=== PATIENT | female | born 1960 | race Caucasian/White ===

== ENCOUNTER 2020-02-28 08:00 | Emergency (ER) | payer SELFPAY ==
[2020-02-28 09:55] VITALS: BP 112/75
--- NOTE | 2020-02-28 10:24 | RADIOLOGY REPORT (SQ) ---
EXAM DESCRIPTION: SHOULDER RIGHT 2 OR MORE VIEWS IMAGES COMPLETED DATE/TIME: 02/28/2020 10:05 am REASON FOR STUDY: fall, R shoulder pain limited ROM COMPARISON: None. NUMBER OF VIEWS: Three views. TECHNIQUE: Internal rotation, external rotation, and Y view images acquired of the right shoulder. LIMITATIONS: None. FINDINGS: MINERALIZATION: Normal. BONES: Nondisplaced fracture of the surgical neck of the humerus. JOINTS: No dislocation. VISUALIZED LUNGS AND RIBS: No pneumothorax. No rib fracture. SOFT TISSUES: No radiopaque foreign body. OTHER: No other significant finding. IMPRESSION: Fracture of the surgical neck. TECHNICAL DOCUMENTATION: JOB ID: [id number] 2010 [employer]- All Rights Reserved Reading location - IP/workstation name: [email or web address]
--- NOTE | 2020-02-28 11:12 | ER Document Report ---
ED Extremity Problem, Upper - General Chief Complaint: Shoulder Pain Stated Complaint: RIGHT SHOULDER PAIN Time Seen by Provider: 02/28/20 08:25 Mode of Arrival: Ambulatory Information source: Patient Notes: 5-year-old female patient presents the emergency department with complaints of right shoulder injury. Patient reports 10 days ago she fell from a standing position striking her left shoulder onto a wall. She denies seeking any medical treatment prior to today. She denies any history of previous trauma to this area. - Related Data Allergies/Adverse Reactions: No Known Allergies Allergy (Unverified 06/29/12 23:06) Past Medical History - General Information source: Patient - Social History Smoking Status: Current Every Day Smoker - Since age 10 Frequency of alcohol use: None Drug Abuse: None Family History: None Pulmonary Medical History: Reports: Hx Asthma Skin Medical History: Reports Hx Psoriasis Past Surgical History: Reports: Hx Gynecologic Surgery - BTL - Immunizations Hx Diphtheria, Pertussis, Tetanus Vaccination: No Review of Systems - Review of Systems Constitutional: No symptoms reported EENT: No symptoms reported Cardiovascular: No symptoms reported Respiratory: No symptoms reported Gastrointestinal: No symptoms reported Genitourinary: No symptoms reported Female Genitourinary: No symptoms reported Musculoskeletal: See HPI Skin: No symptoms reported Hematologic/Lymphatic: No symptoms reported Neurological/Psychological: No symptoms reported Physical Exam - Vital signs Vitals: Temp Pulse Resp BP Pulse Ox 98.9 F 97 16 133/80 H 86 L 02/28/20 08:06 02/28/20 08:06 02/28/20 08:06 02/28/20 08:06 02/28/20 08:06 - Notes Notes: PHYSICAL EXAMINATION: GENERAL: Well-appearing, well-nourished and in no acute distress. HEAD: Atraumatic, normocephalic. EYES: Pupils equal round and reactive to light, extraocular movements intact, conjunctiva are normal. ENT: Nares patent, oropharynx clear without exudates. Moist mucous membranes. NECK: Normal range of motion, supple without lymphadenopathy LUNGS: Lung sounds diminished at the bases. HEART: Regular rate and rhythm without murmurs ABDOMEN: Soft, nontender, nondistended abdomen. No guarding, no rebound. No ma sses appreciated. Female : deferred Musculoskeletal: Limited range of motion at right shoulder, strong brachial pulse, strong radial pulse, normal motor and sensation distally. No obvious shoulder deformity. NEUROLOGICAL: Cranial nerves grossly intact. Normal speech, normal gait. Normal sensory, motor exams PSYCH: Normal mood, normal affect. SKIN: Warm, Dry, normal turgor, no rashes or lesions noted. Course - Re-evaluation Re-evalutation: When patient arrived to the emergency department the PCT notified staff that her pulse ox was 79%. Patient denied any shortness of breath or difficulty breathing, she did not appear to be in any acute distress. She is speaking in full and complete sentences, laughing. She states she is a smoker, she smokes 12 cigarettes a day she used to smoke 2 packs a day. She has not seen a doctor in greater than 10 years. She likely has COPD. X-ray of the right shoulder does show a surgical neck fracture at the right humerus. This was discussed with the patient. He was also discussed with the patient but due to her hypoxia she will likely need a full work-up and possible admission so that we can get her set up with appropriate resources for home oxygen as patient does not have any insurance. We trialed the patient off of oxygen and her O2 sats dropped to the low 80s. After much consideration the patient has declined admission at this time stating that she has to leave to go take care of some things. Patient counseled extensively on the risks of leaving AGAINST MEDICAL ADVICE. 02/28/20 12:22 Patient is not willing to stay for work-up today. She states she has to go home and take care of some things. She does understand the need for work-up so that we can get her set up with home oxygen she also understands that she has a fracture of the right humeral neck. She understands that she may likely need surgery for this. She states she will return later on today after she takes care of her personal affairs. She understands that she is leaving AGAINST MEDICAL ADVICE. Patient declined a sling for her arm stating that she has one at home does not want another one. - Vital Signs Vital signs: Temp Pulse Resp BP Pulse Ox 98.3 F 97 15 112/75 94 02/28/20 09:55 02/28/20 08:06 02/28/20 11:00 02/28/20 09:01 02/28/20 11:00 - Diagnostic Test Radiology reviewed: Image reviewed, Reports reviewed - EKG Interpretation by Me EKG shows normal: Sinus rhythm - EKG shows sinus rhythm, rate of 72, QTc 42. No ST segment elevations or depressions. Discharge - Discharge Clinical Impression: Hypoxia, Left against medical advice Fracture of surgical neck of right humerus Qualifiers: Encounter type: initial encounter Fracture type: closed Fracture morphology: unspecified fracture morphology Fracture alignment: nondisplaced Qualified Code(s): S42.214A - Unspecified nondisplaced fracture of surgical neck of right humerus, initial encounter for closed fracture Condition: Fair Disposition: AGAINST MEDICAL ADVICE Additional Instructions: You have chosen to leave the hospital AGAINST MEDICAL ADVICE. Please note that your oxygen levels were low, you likely need oxygen continuously at home. You also have a fracture near your right shoulder of the humeral head. This will not heal on its own. Please return to the emergency department for further work-up.
--- NOTE | 2020-02-28 12:31 | RADIOLOGY REPORT (SQ) ---
EXAM DESCRIPTION: CHEST SINGLE VIEW IMAGES COMPLETED DATE/TIME: 02/28/2020 12:15 pm REASON FOR STUDY: eval for copd COMPARISON: 06/29/2012 EXAM PARAMETERS: NUMBER OF VIEWS: One view. TECHNIQUE: Single frontal radiographic view of the chest acquired. RADIATION DOSE: NA LIMITATIONS: None. FINDINGS: LUNGS AND PLEURA: No opacities, masses or pneumothorax. No pleural effusion. MEDIASTINUM AND HILAR STRUCTURES: No masses. Contour normal. HEART AND VASCULAR STRUCTURES: Heart normal in size. Normal vasculature. BONES: No acute findings. HARDWARE: None in the chest. OTHER: No other significant finding. IMPRESSION: NO ACUTE RADIOGRAPHIC FINDING IN THE CHEST. TECHNICAL DOCUMENTATION: JOB ID: [id number] 2010 [employer]- All Rights Reserved Reading location - IP/workstation name: [email or web address]
--- NOTE | 2020-02-29 22:11 | EKG REPORT ---
SEVERITY:- ABNORMAL ECG - SINUS RHYTHM PAIRED VENTRICULAR PREMATURE COMPLEXES NONSPECIFIC T ABNORMALITIES, ANTERIOR LEADS : Confirmed by: Tip Rivera 29-Feb-2020 22:11:10
== END 2020-02-28 12:26 | disposition left against medical advice (07) ==
LOC: ER 08:00
DX: S42.214A Unspecified nondisplaced fracture of surgical neck of right humerus, initial encounter for closed fracture (principal); M25.511 Pain in right shoulder; R09.02 Hypoxemia; W19.XXXA Unspecified fall, initial encounter; F17.210 Nicotine dependence, cigarettes, uncomplicated
CPT/HCPCS: 71045; 93005; 93010; 99284

== ENCOUNTER 2020-02-29 07:32 | Emergency (ER) | payer SELFPAY ==
--- NOTE | 2020-02-29 11:10 | ER Document Report ---
ED Medical Screen (RME) - General Chief Complaint: Fall Stated Complaint: FALL,RIGHT SHOULDER PAIN Time Seen by Provider: 02/29/20 11:07 - HPI Notes: 02/29/20 11:09 59-year-old female with past medical history of smoking to the emergency department for repeat visit from yesterday. She came in with complaints of right shoulder pain and was found to have a surgical neck fracture. She was also found to be hypoxic. She is not seen a doctor in some time. She smokes about 12 cigarettes a day has been smoking since she was 10 years old. She denies feeling short of breath. Her oxygen level when she checked in this morning was 83% on room air. She was placed on oxygen. Denies any chest pain or shortness of breath. I performed a brief medical screening exam on the patient determined that the patient needs further evaluation and management by main side provider. I have placed initial orders to help expedite care. - Related Data Allergies/Adverse Reactions: No Known Allergies Allergy (Verified 02/29/20 07:51) Home Medications: Aleve PRN Pain Past Medical History - Social History Chew tobacco use (# tins/day): No Drug Abuse: None Pulmonary Medical History: Reports: Hx Asthma Skin Medical History: Reports Hx Psoriasis Past Surgical History: Reports: Hx Gynecologic Surgery - BTL - Immunizations Hx Diphtheria, Pertussis, Tetanus Vaccination: No Physical Exam - Vital signs Vitals: Temp Pulse Resp BP Pulse Ox 98.1 F 89 18 127/72 H 83 L 02/29/20 07:42 02/29/20 07:42 02/29/20 07:42 02/29/20 07:42 02/29/20 07:42 Course - Vital Signs Vital signs: Temp Pulse Resp BP Pulse Ox 98.1 F 79 18 133/86 H 94 02/29/20 07:42 02/29/20 11:05 02/29/20 11:05 02/29/20 11:05 02/29/20 11:05
[2020-02-29 12:02] LABS: ABSOLUTE EOSINOPHILS # (AUTO) 0.1 10^3/uL (0.0-0.6); ABSOLUTE LYMPHOCYTES (AUTO) 1.2 10^3/uL (0.5-4.7); ABSOLUTE MONOCYTES (AUTO) 0.6 10^3/uL (0.1-1.4); ABSOLUTE NEUT (AUTO) 3.3 10^3/uL (1.7-8.2); BASOPHILS % (AUTO) 0.8 % (0-2); EOSINOPHILS % (AUTO) 2.5 % (0-6); HEMATOCRIT 45.6 % (36.0-47.0); HEMOGLOBIN 16.1 g/dL (12.0-15.5); LYMPHOCYTES % (AUTO) 23.5 % (13-45); MEAN CORPUSCULAR HEMOGLOBIN 41.3 pg (27.0-33.4); MEAN CORPUSCULAR HGB CONC 35.4 g/dL (32.0-36.0); MONOCYTES % (AUTO) 11.3 % (3-13); PLATELET COUNT 281 10^3/uL (150-450); RED BLOOD COUNT 3.91 10^6/uL (3.72-5.28); RED CELL DISTRIBUTION WIDTH 17.1 % (11.5-14.0); SEGMENTED NEUTROPHILS % (AUTO) 61.9 % (42-78); TOTAL CELLS COUNTED % (AUTO) 100 %; WHITE BLOOD COUNT 5.3 10^3/uL (4.0-10.5)
[2020-02-29 12:08] LABS: INTERNATIONAL RATION (INR) 0.85; PROTHROMBIN TIME 11.8 SEC (11.4-15.4)
[2020-02-29 12:09] LABS: PARTIAL THROMBOPLASTIN TIME 28.7 SEC (23.5-35.8)
--- NOTE | 2020-02-29 12:09 | RADIOLOGY REPORT (SQ) ---
EXAM DESCRIPTION: CHEST SINGLE VIEW IMAGES COMPLETED DATE/TIME: 02/29/2020 12:01 pm REASON FOR STUDY: hypoxia COMPARISON: 02/28/2020 EXAM PARAMETERS: NUMBER OF VIEWS: One view. TECHNIQUE: Single frontal radiographic view of the chest acquired. RADIATION DOSE: NA LIMITATIONS: None. FINDINGS: LUNGS AND PLEURA: No opacities, masses or pneumothorax. No pleural effusion. MEDIASTINUM AND HILAR STRUCTURES: No masses. Contour normal. HEART AND VASCULAR STRUCTURES: Heart normal in size. Normal vasculature. BONES: No acute findings. HARDWARE: None in the chest. OTHER: No other significant finding. IMPRESSION: NO ACUTE RADIOGRAPHIC FINDING IN THE CHEST. TECHNICAL DOCUMENTATION: JOB ID: [id number] 2010 [employer]- All Rights Reserved Reading location - IP/workstation name: [email or web address]
[2020-02-29 12:27] LABS: MEAN CORPUSCULAR VOLUME 117 fl (80-97)
[2020-02-29 12:30] LABS: ANISOCYTOSIS 1+; PLATELET COMMENT ADEQUATE; POLYCHROMASIA SLIGHT; TEAR DROP CELLS SLIGHT
[2020-02-29 12:55] VITALS: BP 155/77
--- NOTE | 2020-02-29 16:00 | ER Document Report ---
Entered by DAKSHA LALA SCRIBE 02/29/20 1227 Acting as scribe for:VALENTE HINES MD ED General - General Chief Complaint: Fall Stated Complaint: FALL,RIGHT SHOULDER PAIN Time Seen by Provider: 02/29/20 11:07 Primary Care Provider: [facility] [Provider Group] - Follow up as needed Information source: Patient Notes: This 59 year old female patient presents to the emergency department today because she was called and told to come back after her visit here yesterday for a broken right shoulder. Patient was found to be hypoxic yesterday with an oxygen saturation in the mid-80s and they attempted to admit her for that but she signed out AMA. The fall occurred on February 17 but she mentions that the pain got worse prior to arrival yesterday. She states that she is not short of breath and feels no different when she is on oxygen in the hospital. - Related Data Allergies/Adverse Reactions: No Known Allergies Allergy (Verified 02/29/20 07:51) Home Medications: Aleve PRN Pain Past Medical History - General Information source: Patient - Social History Smoking Status: Current Every Day Smoker Cigarette use (# per day): Yes Chew tobacco use (# tins/day): No Drug Abuse: None Lives with: Family Family History: Reviewed & Not Pertinent Patient has homicidal ideation: No Pulmonary Medical History: Reports: Hx Asthma Skin Medical History: Reports Hx Psoriasis Past Surgical History: Reports: Hx Gynecologic Surgery - BTL - Immunizations Hx Diphtheria, Pertussis, Tetanus Vaccination: No Review of Systems - Review of Systems Constitutional: No symptoms reported EENT: No symptoms reported Cardiovascular: No symptoms reported Respiratory: denies: Short of breath Gastrointestinal: No symptoms reported Genitourinary: No symptoms reported Female Genitourinary: No symptoms reported Musculoskeletal: See HPI, Joint pain - right shoulder pain Skin: No symptoms reported Hematologic/Lymphatic: No symptoms reported Neurological/Psychological: No symptoms reported -: Yes All other systems reviewed and negative Physical Exam - Vital signs Vitals: Temp Pulse Resp BP Pulse Ox 98.1 F 89 18 127/72 H 83 L 02/29/20 07:42 02/29/20 07:42 02/29/20 07:42 02/29/20 07:42 02/29/20 07:42 - Notes Notes: Physical Exam: General: Alert, appears well. HEENT: Normocephalic. Atraumatic. PERRL. Extraocular movements intact. Oropharynx clear. Neck: Supple. Non-tender. Respiratory: No respiratory distress. Clear and equal breath sounds bilaterally. Cardiovascular: Regular rate and rhythm. Abdominal: Normal Inspection. Non-tender. No distension. Normal Bowel Sounds. Back: No gross abnormalities. Extremities: Moves all four extremities. Upper extremities: Tenderness to palpation of the right shoulder. Lower extremities: Normal inspection. No edema. Normal ROM. Neurological: Normal cognition. AAOx4. Normal speech. Psychological: Normal affect. Normal Mood. Skin: Warm. Dry. Normal color. Course - Re-evaluation Re-evalutation: 02/29/20 12:39 I walked the patient from room 13 to the doctor's work area so she could see the x-ray of her fractured shoulder and better understand what the injury was. She then walked back to room 13. That was a fairly long walk. When she got back to the room I had her sit down and listen to her heart and lungs. She did not become tachycardic, and she was not short of breath. She stated she could not tell any difference in her breathing. 02/29/20 13:05 A sling was placed on the right shoulder by the PCT. It fits well, provide support and comfort. - Vital Signs Vital signs: Temp Pulse Resp BP Pulse Ox 98.2 F 84 18 155/77 H 86 L 02/29/20 12:53 02/29/20 12:53 02/29/20 12:53 02/29/20 12:53 02/29/20 12:53 - Laboratory Result Diagrams: 02/29/20 11:20 Laboratory results interpreted by me: 02/29/20 11:20 Hgb 16.1 H MCV 117 H MCH 41.3 H RDW 17.1 H - EKG Interpretation by Nj EKG shows normal: Sinus rhythm, Fowler, QRS Complexes. abnormal: Intervals - Prolonged QT interval, ST-T Waves - Nonspecific anterior T abnormalities Rate: Normal - 85 Rhythm: NSR, PVC's When compared to previous EKG there are: No significant change Discharge - Discharge Clinical Impression: Hypoxia COPD (chronic obstructive pulmonary disease) Qualifiers: COPD type: unspecified COPD Qualified Code(s): J44.9 - Chronic obstructive pulmonary disease, unspecified Fracture of surgical neck of right humerus Qualifiers: Encounter type: initial encounter Fracture type: closed Fracture morphology: unspecified fracture morphology Fracture alignment: nondisplaced Qualified Code(s): S42.214A - Unspecified nondisplaced fracture of surgical neck of right humerus, initial encounter for closed fracture Condition: Stable Disposition: HOME, SELF-CARE Additional Instructions: Your oxygen levels were found to be quite low due to COPD. This is a result of long-term cigarette smoking. As you are quite comfortable with oxygen levels that you currently have, no intervention at this time is needed. It would be in your benefit to try to reduce cigarette smoking. Your shoulder fracture does not require surgery to repair. It will heal over the next 6 weeks with protection using a sling. Try to limit using the shoulder for the next 2 weeks, then gently start range of motion exercises. Continue to take Aleve as you are now for your pain management. Take the Bath as prescribed if the pain becomes severe. Follow-up with [facility] for surgery to evaluate your shoulder fracture and to plan for shoulder rehabilitation. RETURN TO THE EMERGENCY ROOM IF ANY NEW OR WORSENING SYMPTOMS. Prescriptions: Hydrocodone/Acetaminophen [Bath 5-325 mg Tablet] 1 tab PO ASDIR PRN #12 tablet PRN Reason: For Pain Referrals: [facility] [Provider Group] - Follow up as needed I personally performed the services described in the documentation, reviewed and edited the documentation which was dictated to the scribe in my presence, and it accurately records my words and actions.
--- NOTE | 2020-02-29 22:10 | EKG REPORT ---
SEVERITY:- ABNORMAL ECG - SINUS RHYTHM VENTRICULAR PREMATURE COMPLEX NONSPECIFIC T ABNORMALITIES, ANTERIOR LEADS PROLONGED QT INTERVAL : Confirmed by: Tip Rivera 29-Feb-2020 22:10:17
[2020-03-01 11:02] LABS: PATH REVIEW PATHOLOGIST REVIEWED
== END 2020-02-29 13:13 | disposition home or self-care (01) ==
LOC: ER 07:32
DX: S42.214A Unspecified nondisplaced fracture of surgical neck of right humerus, initial encounter for closed fracture (principal); W01.0XXA Fall on same level from slipping, tripping and stumbling without subsequent striking against object, initial encounter; J44.9 Chronic obstructive pulmonary disease, unspecified; R09.02 Hypoxemia; I49.3 Ventricular premature depolarization; F17.210 Nicotine dependence, cigarettes, uncomplicated
CPT/HCPCS: 36415; 71045; 85025; 85610; 85730; 93005; 93010; 99285